=== PATIENT | male | born 1960 | race African-American/Black ===

== ENCOUNTER 2022-03-30 12:58 | Inpatient (IN) | payer OTHER ==
[2022-03-30 13:37] VITALS: BMI 22.1
[2022-03-30] MEDS ORDERED: MAG HYDROX/AL HYDROX/SIMETH 30 ML UNIT-DOSE CUP PO PRN (14:21)
[2022-03-30] MEDS ORDERED: MAGNESIUM HYDROX 2400MG/30ML ORAL SUSPENSION 30 ML CUP PO PRN (14:21)
[2022-03-30] MEDS ORDERED: ACETAMINOPHEN 325 MG TABLET (FP) PO PRN (14:21)
[2022-03-30] MEDS ORDERED: hydrOXYzine PAMOATE 25 MG CAPSULE (FP) PO PRN (14:21)
[2022-03-30] MEDS ORDERED: NICOTINE POLACRILEX 2 MG GUM BC PRN (14:21)
[2022-03-30] MEDS ORDERED: BENZOCAINE/MENTHOL (CHLORASEPTIC ) LOZENGE MM PRN (14:21)
[2022-03-30] MEDS ORDERED: NICOTINE 10 MG CARTRIDGE (INHALER) IH PRN (14:21)
[2022-03-30] MEDS ORDERED: IBUPROFEN 400 MG TABLET (FP) PO PRN (14:21)
[2022-03-30] MEDS ORDERED: guaiFENesin 200 MG/10 ML 10 ML UNIT-DOSE CUPS PO PRN (14:21)
[2022-03-30] MEDS ORDERED: POLYETHYLENE GLYCOL (HEALTHYLAX) 3350 17 GM PACKET PO PRN (14:21)
[2022-03-30] MEDS ORDERED: LOPERAMIDE HCL 2 MG CAPSULE PO PRN (14:21)
[2022-03-30] MEDS ORDERED: ALBUTEROL SO4 HFA INHALER IH PRN (14:25)
[2022-03-30] MEDS: NICOTINE 14 MG/24 HOURS TOPICAL PATCH TD SCH (19:17)
[2022-03-30] MEDS: THIAMINE HCL 100 MG TABLET (FP) PO SCH (21:20)
[2022-03-30] MEDS: MELATONIN 5 MG TABLETS PO SCH (21:20)
[2022-03-31] MEDS: PRENATAL VITAMINS W/ FOLIC ACID TABLET (FP) PO SCH (09:42)
[2022-03-31] MEDS: ASPIRIN 81 MG CHEWABLE TABLETS PO SCH (09:42)
[2022-03-31] MEDS: FAMOTIDINE 20 MG TABLET PO SCH (09:42)
[2022-03-31] MEDS: ISOSORBIDE MONONITRATE 60 MG TAB.SR.24H (FP) PO SCH (09:42)
[2022-03-31] MEDS: NIFEdipine E.R 60 MG TABLET PO SCH (09:42)
[2022-03-31] MEDS: NICOTINE 14 MG/24 HOURS TOPICAL PATCH TD SCH (09:44)
[2022-03-31] MEDS ORDERED: TUBERCULIN PPD 5 TU/0.1ML VIAL ID ONE (09:48)
[2022-03-31 11:12] LABS: HEMOGLOBIN 11.4 GM/dL (11.7-16.9); MCH 32.7 pg (25.7-33.7); MCHC 33.4 g/dl (32.0-35.9); MEAN CELL VOLUME 97.8 fl (80-96); MEAN PLT VOLUME 9.5 fl (7.5-11.1); PLATELET COUNT 148 10^3/uL (134-434); RBC 3.48 M/mm3 (4.00-5.60); RDW 13.7 % (11.9-15.9)
[2022-03-31 11:32] LABS: ALBUMIN 3.4 g/dl (3.4-5.0); BLOOD UREA NITROGEN 33.7 mg/dL (7-18)
[2022-03-31 11:35] LABS: BILIRUBIN,TOTAL 0.2 mg/dL (0.2-1); CREATININE 1.3 mg/dL (0.55-1.3)
[2022-03-31 11:37] LABS: TOT PROT 6.6 g/dl (6.4-8.2)
[2022-03-31 12:46] LABS: SYPHILIS W/ RPR CONF REACTIVE (NONREACTIVE)
[2022-03-31 15:34] LABS: PH,URINE 5.5 (5.0-8.0); URINE APPEARANCE CLEAR; URINE BILIRUBIN NEGATIVE (NEGATIVE); URINE COLOR YELLOW; URINE GLUCOSE (UA) NEGATIVE (NEGATIVE); URINE KETONE NEGATIVE (NEGATIVE); URINE LEUK ESTERASE NEGATIVE (NEGATIVE); URINE NITRITE NEGATIVE (NEGATIVE); URINE PROTEIN NEGATIVE (NEGATIVE); URINE UROBILINOGEN 0.2 mg/dL (0.2-1.0)
[2022-03-31] MEDS: THIAMINE HCL 100 MG TABLET (FP) PO SCH (21:20)
[2022-03-31] MEDS: MELATONIN 5 MG TABLETS PO SCH (21:20)
[2022-04-01] MEDS: ASPIRIN 81 MG CHEWABLE TABLETS PO SCH (10:16)
[2022-04-01] MEDS: PRENATAL VITAMINS W/ FOLIC ACID TABLET (FP) PO SCH (10:16)
[2022-04-01] MEDS: FAMOTIDINE 20 MG TABLET PO SCH (10:16)
[2022-04-01] MEDS: ISOSORBIDE MONONITRATE 60 MG TAB.SR.24H (FP) PO SCH (10:16)
[2022-04-01] MEDS: NIFEdipine E.R 60 MG TABLET PO SCH (10:17)
[2022-04-01] MEDS: NICOTINE 14 MG/24 HOURS TOPICAL PATCH TD SCH (10:17)
[2022-04-01] MEDS: MELATONIN 5 MG TABLETS PO SCH (21:27)
[2022-04-01] MEDS: THIAMINE HCL 100 MG TABLET (FP) PO SCH (21:27)
[2022-04-02] MEDS: PRENATAL VITAMINS W/ FOLIC ACID TABLET (FP) PO SCH (10:13)
[2022-04-02] MEDS: NICOTINE 14 MG/24 HOURS TOPICAL PATCH TD SCH (10:14)
[2022-04-02] MEDS: FAMOTIDINE 20 MG TABLET PO SCH (10:14)
[2022-04-02] MEDS: ASPIRIN 81 MG CHEWABLE TABLETS PO SCH (10:14)
[2022-04-02] MEDS: ISOSORBIDE MONONITRATE 60 MG TAB.SR.24H (FP) PO SCH (11:09)
[2022-04-02] MEDS: NIFEdipine E.R 60 MG TABLET PO SCH (11:09)
[2022-04-02] MEDS: MELATONIN 5 MG TABLETS PO SCH (22:04)
[2022-04-02] MEDS: THIAMINE HCL 100 MG TABLET (FP) PO SCH (22:04)
[2022-04-03] MEDS: PRENATAL VITAMINS W/ FOLIC ACID TABLET (FP) PO SCH (10:03)
[2022-04-03] MEDS: ASPIRIN 81 MG CHEWABLE TABLETS PO SCH (10:04)
[2022-04-03] MEDS: ISOSORBIDE MONONITRATE 60 MG TAB.SR.24H (FP) PO SCH (10:04)
[2022-04-03] MEDS: NIFEdipine E.R 60 MG TABLET PO SCH (10:04)
[2022-04-03] MEDS: FAMOTIDINE 20 MG TABLET PO SCH (10:04)
[2022-04-03] MEDS: NICOTINE 14 MG/24 HOURS TOPICAL PATCH TD SCH (10:04)
[2022-04-03 11:39] VITALS: RESP 18
[2022-04-03] MEDS: THIAMINE HCL 100 MG TABLET (FP) PO SCH (21:25)
[2022-04-03] MEDS: MELATONIN 5 MG TABLETS PO SCH (21:25)
[2022-04-04] MEDS: NICOTINE 14 MG/24 HOURS TOPICAL PATCH TD SCH (10:18)
[2022-04-04] MEDS: PRENATAL VITAMINS W/ FOLIC ACID TABLET (FP) PO SCH (10:18)
[2022-04-04] MEDS: ASPIRIN 81 MG CHEWABLE TABLETS PO SCH (10:19)
[2022-04-04] MEDS: ISOSORBIDE MONONITRATE 60 MG TAB.SR.24H (FP) PO SCH (10:19)
[2022-04-04] MEDS: FAMOTIDINE 20 MG TABLET PO SCH (10:19)
[2022-04-04] MEDS: NIFEdipine E.R 60 MG TABLET PO SCH (10:19)
[2022-04-04] MEDS: THIAMINE HCL 100 MG TABLET (FP) PO SCH (21:16)
[2022-04-04] MEDS: MELATONIN 5 MG TABLETS PO SCH (21:16)
[2022-04-05] MEDS: NICOTINE 14 MG/24 HOURS TOPICAL PATCH TD SCH (09:41)
[2022-04-05] MEDS: FAMOTIDINE 20 MG TABLET PO SCH (09:41)
[2022-04-05] MEDS: PRENATAL VITAMINS W/ FOLIC ACID TABLET (FP) PO SCH (09:41)
[2022-04-05] MEDS: ISOSORBIDE MONONITRATE 60 MG TAB.SR.24H (FP) PO SCH (09:42)
[2022-04-05] MEDS: NIFEdipine E.R 60 MG TABLET PO SCH (09:42)
[2022-04-05] MEDS: ASPIRIN 81 MG CHEWABLE TABLETS PO SCH (09:42)
[2022-04-05] MEDS: THIAMINE HCL 100 MG TABLET (FP) PO SCH (21:20)
[2022-04-05] MEDS: MELATONIN 5 MG TABLETS PO SCH (21:20)
[2022-04-06 07:28] VITALS: TEMP 97.7
[2022-04-06] MEDS: PRENATAL VITAMINS W/ FOLIC ACID TABLET (FP) PO SCH (09:59)
[2022-04-06] MEDS: ASPIRIN 81 MG CHEWABLE TABLETS PO SCH (09:59)
[2022-04-06] MEDS: FAMOTIDINE 20 MG TABLET PO SCH (09:59)
[2022-04-06] MEDS: ISOSORBIDE MONONITRATE 60 MG TAB.SR.24H (FP) PO SCH (09:59)
[2022-04-06] MEDS: NICOTINE 14 MG/24 HOURS TOPICAL PATCH TD SCH (09:59)
[2022-04-06] MEDS: NIFEdipine E.R 60 MG TABLET PO SCH (09:59)
[2022-04-06] MEDS: THIAMINE HCL 100 MG TABLET (FP) PO SCH (21:19)
[2022-04-06] MEDS: MELATONIN 5 MG TABLETS PO SCH (21:19)
[2022-04-07] MEDS: PRENATAL VITAMINS W/ FOLIC ACID TABLET (FP) PO SCH (09:49)
[2022-04-07] MEDS: NIFEdipine E.R 60 MG TABLET PO SCH (09:49)
[2022-04-07] MEDS: ASPIRIN 81 MG CHEWABLE TABLETS PO SCH (09:49)
[2022-04-07] MEDS: ISOSORBIDE MONONITRATE 60 MG TAB.SR.24H (FP) PO SCH (09:49)
[2022-04-07] MEDS: NICOTINE 14 MG/24 HOURS TOPICAL PATCH TD SCH (09:49)
[2022-04-07] MEDS: FAMOTIDINE 20 MG TABLET PO SCH (09:49)
[2022-04-07] MEDS: THIAMINE HCL 100 MG TABLET (FP) PO SCH (21:55)
[2022-04-07] MEDS: MELATONIN 5 MG TABLETS PO SCH (21:55)
[2022-04-08 09:15] VITALS: BP 143/81; PULSE 72
[2022-04-08] MEDS: NIFEdipine E.R 60 MG TABLET PO SCH (10:11)
[2022-04-08] MEDS: FAMOTIDINE 20 MG TABLET PO SCH (10:11)
[2022-04-08] MEDS: NICOTINE 14 MG/24 HOURS TOPICAL PATCH TD SCH (10:11)
[2022-04-08] MEDS: PRENATAL VITAMINS W/ FOLIC ACID TABLET (FP) PO SCH (10:11)
[2022-04-08] MEDS: ISOSORBIDE MONONITRATE 60 MG TAB.SR.24H (FP) PO SCH (10:11)
[2022-04-08] MEDS: ASPIRIN 81 MG CHEWABLE TABLETS PO SCH (10:11)
[2022-04-08] MEDS: THIAMINE HCL 100 MG TABLET (FP) PO SCH (21:17)
[2022-04-08] MEDS: MELATONIN 5 MG TABLETS PO SCH (21:17)
== END 2022-04-09 06:03 | disposition left against medical advice (07) | DRG 770 ==
LOC: YASAS 12:58 → Y6N 15:32 → Y3W 18:57
PROVIDERS: ADMIT Allergy & Immunology; ATTEND Allergy & Immunology
PROC: HZ2ZZZZ Detoxification Services for Substance Abuse Treatment (ICD-10-PCS; principal; 2022-03-30)
DX: F14.20 Cocaine dependence, uncomplicated (principal); F17.210 Nicotine dependence, cigarettes, uncomplicated; F19.280 Other psychoactive substance dependence with psychoactive substance-induced anxiety disorder; E78.5 Hyperlipidemia, unspecified; I10 Essential (primary) hypertension; I25.2 Old myocardial infarction; J45.20 Mild intermittent asthma, uncomplicated; K21.9 Gastro-esophageal reflux disease without esophagitis; Z62.810 Personal history of physical and sexual abuse in childhood; R63.4 Abnormal weight loss; Z68.22 Body mass index [BMI] 22.0-22.9, adult; Z86.19 Personal history of other infectious and parasitic diseases; Z88.0 Allergy status to penicillin
CPT/HCPCS: 36415; 80053; 81003; 85027; 86593; 86780; 86803; 87811; 93005; 93010; C9803-CS; U0003; U0005